=== PATIENT | male | born 1985 | race Caucasian/White ===

== ENCOUNTER 2016-10-02 04:51 | Day surgery (SDC) | payer OTHER ==
[~2016-10-02] VITALS: Ht 190.5 cm; Wt 90.0 kg
[~2016-10-02 04:51] MED LIST: IBUPROFEN800 MG PO
[2016-10-02 06:56] VITALS: BP 139/91
[2016-10-02] MEDS ORDERED: PERCOCET 5/31 TABLET PO (08:45)
[2016-10-02] MEDS ORDERED: COLACE100 MG PO (08:45)
[2016-10-02] MEDS ORDERED: ANECREAM30 GM TP (08:46)
[2016-10-02 11:10] VITALS: BP 134/78
[2016-10-02 11:58] VITALS: BP 140/90
[2016-10-02 14:45] VITALS: BP 126/76
== END 2016-10-02 15:30 | disposition home or self-care (01) ==
LOC: SDC 04:51
PROC: 06BY3ZC Excision of Hemorrhoidal Plexus, Percutaneous Approach (ICD-10-PCS; principal; 2016-10-02)
DX: K64.8 Other hemorrhoids (principal); K64.4 Residual hemorrhoidal skin tags
CPT/HCPCS: 88304; J0690; J1100; J1170; J2405; J3010

== ENCOUNTER → 2017-01-16 | Outpatient (CLI) | payer OTHER ==
[~2017-01-16] VITALS: Ht 193 cm; Wt 86.4 kg
[~2017-01-16] MED LIST changes: +ANECREAM30 GM TP; +COLACE100 MG PO; +PERCOCET 5/31 TABLET PO
== END | disposition home or self-care (01) ==
LOC: AMB 09:52
PROC: 0DBN8ZX Excision of Sigmoid Colon, Via Natural or Artificial Opening Endoscopic, Diagnostic (ICD-10-PCS; principal; 2017-01-16)
DX: K62.89 Other specified diseases of anus and rectum (principal); R15.0 Incomplete defecation; K63.5 Polyp of colon; K92.1 Melena; K64.8 Other hemorrhoids; Z82.49 Family history of ischemic heart disease and other diseases of the circulatory system
CPT/HCPCS: 88305; J2250; J3010